=== PATIENT | female | born 2000 | race Caucasian/White ===

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

== ENCOUNTER 2022-03-09 21:18 | Emergency (ER) | payer OTHER ==
[~2022-03-09] VITALS: Ht 175.3 cm; Wt 97.5 kg
[2022-03-09] MEDS ORDERED: Flonase 0.05% N16 GM (22:05)
== END 2022-03-09 23:22 | disposition home or self-care (01) ==
LOC: ER 21:18
DX: H92.02 Otalgia, left ear (principal); J30.2 Other seasonal allergic rhinitis
CPT/HCPCS: 99282

== ENCOUNTER 2023-05-21 22:20 | Emergency (ER) | payer OTHER ==
[~2023-05-21] VITALS: Ht 175.3 cm; Wt 104.3 kg
[~2023-05-21 22:20] MED LIST changes: +Flonase 0.05% N16 GM
[2023-05-21 22:29] VITALS: BP 143/85
[2023-05-21 23:04] LABS: Source, Urine Clean Catch
[2023-05-21 23:07] LABS: Bilirubin, Urine Neg (Neg); Blood, Urine 1+ (Neg); Glucose Qualitative, Urine Neg (Neg); Ketones, Urine Neg (Neg); Leukocyte Esterase, Urine 3+ (Neg); Nitrite, Urine Neg (Neg); Protein, Urine Neg (Neg); Specific Gravity, Urine 1.025 (1.003-1.022); Urobilinogen, Urine NORM (Normal)
[2023-05-21 23:08] LABS: BASOPHILS ABSOLUTE AUTO 0.03 K/mm3 (0.00-0.23); BASOPHILS PERCENT AUTO 0 % (0-2); EOSINOPHILS ABSOLUTE AUTO 0.04 K/mm3 (0.00-0.68); EOSINOPHILS PERCENT AUTO 0 % (0-6); Hematocrit 35.4 % (33.0-51.0); Hemoglobin 11.7 g/dL (11.5-16.0); IMMATURE GRAN ABSOLUTE AUTO 0.04 K/mm3 (0.00-0.10); IMMATURE GRAN PERCENT AUTO 0 % (0-1); LYMPHOCYTES ABSOLUTE AUTO 3.66 K/mm3 (0.84-5.20); LYMPHOCYTES PERCENT AUTO 29 % (21-46); MONOCYTES ABSOLUTE AUTO 0.75 K/mm3 (0.16-1.47); MONOCYTES PERCENT AUTO 6 % (4-13); Mean Corpuscular HGB 27.1 pg (26.0-34.0); Mean Corpuscular HGB Conc 33.1 g/dL (31.5-36.5); Mean Corpuscular Volume 82 fL (80-100); Mean Platelet Volume 8.8 fL (9.1-12.4); NEUTROPHILS ABSOLUTE AUTO 8.23 K/mm3 (1.96-9.15); NEUTROPHILS PERCENT AUTO 65 % (41-73); Platelet Count 395 K/mm3 (150-400); RDW Coefficient Variation 13.1 % (11.7-14.2); RDW Standard Deviation 38.9 fL (35.1-46.3); Red Blood Cell Count 4.32 M/mm3 (3.80-5.20); White Blood Cell Count 12.75 K/mm3 (4.00-11.30)
[2023-05-21 23:09] LABS: Appearance, Urine Hazy (Clear); Color, Urine Yellow (P-Yellow)
[2023-05-21 23:17] LABS: Bacteria Many /hpf; Red Blood Cells, Urine 0-2 /hpf (0-2); Squamous Epithelial Cells Few /hpf (Few); White Blood Cells, Urine 50-100 /hpf (0-5)
[2023-05-21 23:18] LABS: Amorphous Mod (0-Heavy)
[2023-05-21 23:41] LABS: Albumin/Globulin Ratio 0.7 (0.8-1.8); Bilirubin, Total 0.1 mg/dL (0.1-1.0); Bun/Creatinine Ratio 16.5 (12.0-20.0); Calcium, Blood 9.2 mg/dL (8.5-10.1); Creatinine, Blood 0.48 mg/dL (0.40-1.00); Globulin, Blood 4.1 g/dL (2.2-4.0); Potassium, Blood 3.7 mmol/L (3.5-5.5); Total Protein, Blood 7.1 g/dL (6.4-8.2)
== END 2023-05-22 00:43 | disposition home or self-care (01) ==
LOC: ER 22:20
PROVIDERS: Physician Assistant
DX: O20.9 Hemorrhage in early pregnancy, unspecified (principal); Z3A.18 18 weeks gestation of pregnancy
CPT/HCPCS: 76815; 80053; 81001; 84702; 85025; 87086; 99284-25

== ENCOUNTER 2023-10-20 07:05 | Inpatient (IN) | payer OTHER ==
[2023-10-20 07:23] VITALS: BP 136/77
--- NOTE | 2023-10-20 08:11 | NUR ---
STARTED THE ADMIT PROCESS AND PT HAS CHANGED HER MIND AND WANTS TO GO HOME AND TRY GOING INTO LABOR ON HER OWN, KAROL ROTH AND PT AND SO DISCUSSED RISKS OF WAITING AND RESCHEDULING AN INDUCTION AND WHEN WOULD BE AN APPROPERIATE TIME, PT STILL CHOOSING TO GO HOME, SHE REALLY WANTS TO TRY TO GO INTO LABOR ON HER OWN,. KAROL ROTH ANSWERED ALL PT QUESTIONS
--- NOTE | 2023-10-20 08:34 | NUR ---
pt ambulate out, has copy of dcinstructions, dc instructions gone over with pt and SO with leon merino at bedside, pt and so verblize understanding for returning. leon merino has a tenative plan for an induction if pt doesnt go into labor within the week. pt verblized this. pt aware will need to see leon merino on tuesday in the office, office isnt open today to schedule appt, pt verblized calling tuesday to schedule the appt
== END 2023-10-20 08:30 | disposition home or self-care (01) | DRG 833 ==
LOC: BC 07:05 → OBS 07:05 → BC 07:30
PROVIDERS: ADMIT Advanced Practice Midwife
DX: O48.0 Post-term pregnancy (principal); Z3A.40 40 weeks gestation of pregnancy; Z53.29 Procedure and treatment not carried out because of patient's decision for other reasons

== ENCOUNTER 2023-10-23 02:38 | Inpatient (IN) | payer OTHER ==
[2023-10-23] VITALS (13 sets, daily range): BP systolic 127–149; BP diastolic 62–90
[~2023-10-23] VITALS: Ht 172.7 cm; Wt 140.4 kg
[2023-10-23 03:27] LABS: BASOPHILS ABSOLUTE AUTO 0.03 K/mm3 (0.00-0.23); BASOPHILS PERCENT AUTO 0 % (0-2); EOSINOPHILS ABSOLUTE AUTO 0.01 K/mm3 (0.00-0.68); EOSINOPHILS PERCENT AUTO 0 % (0-6); Hematocrit 35.2 % (33.0-51.0); Hemoglobin 11.6 g/dL (11.5-16.0); IMMATURE GRAN ABSOLUTE AUTO 0.06 K/mm3 (0.00-0.10); IMMATURE GRAN PERCENT AUTO 0 % (0-1); LYMPHOCYTES ABSOLUTE AUTO 2.83 K/mm3 (0.84-5.20); LYMPHOCYTES PERCENT AUTO 20 % (21-46); MONOCYTES ABSOLUTE AUTO 0.83 K/mm3 (0.16-1.47); MONOCYTES PERCENT AUTO 6 % (4-13); Mean Corpuscular HGB 26.2 pg (26.0-34.0); Mean Corpuscular Volume 80 fL (80-100); Mean Platelet Volume 9.6 fL (9.1-12.4); NEUTROPHILS ABSOLUTE AUTO 10.75 K/mm3 (1.96-9.15); NEUTROPHILS PERCENT AUTO 74 % (41-73); Platelet Count 374 K/mm3 (150-400); RDW Coefficient Variation 13.3 % (11.7-14.2); RDW Standard Deviation 37.6 fL (35.1-46.3); Red Blood Cell Count 4.42 M/mm3 (3.80-5.20); White Blood Cell Count 14.51 K/mm3 (4.00-11.30)
[2023-10-23] MEDS ORDERED: PRENATAL TABLE1 EAC2 PO (04:09)
[2023-10-23] MEDS ORDERED: ALBU90OI INH (04:10)
[2023-10-24 05:52] VITALS: BP 148/72
[2023-10-24 06:30] LABS: Hematocrit 33.5 % (33.0-51.0); Hemoglobin 10.8 g/dL (11.5-16.0); Mean Corpuscular HGB 26.2 pg (26.0-34.0); Mean Corpuscular HGB Conc 32.2 g/dL (31.5-36.5); Mean Corpuscular Volume 81 fL (80-100); Mean Platelet Volume 9.4 fL (9.1-12.4); Platelet Count 357 K/mm3 (150-400); RDW Coefficient Variation 13.7 % (11.7-14.2); RDW Standard Deviation 39.1 fL (35.1-46.3); Red Blood Cell Count 4.12 M/mm3 (3.80-5.20); White Blood Cell Count 15.78 K/mm3 (4.00-11.30)
[2023-10-24 07:27] VITALS: BP 127/65
== END 2023-10-24 10:45 | disposition home or self-care (01) | DRG 807 ==
LOC: OBS 02:38 → BC 02:38 → OBS 03:03 → BC 03:05
PROVIDERS: ADMIT Advanced Practice Midwife
PROC: 10E0XZZ Delivery of Products of Conception, External Approach (ICD-10-PCS; principal; 2023-10-23)
PROC: 0HQ9XZZ Repair Perineum Skin, External Approach (ICD-10-PCS; 2023-10-23)
PROC: 10907ZC Drainage of Amniotic Fluid, Therapeutic from Products of Conception, Via Natural or Artificial Opening (ICD-10-PCS; 2023-10-23)
DX: O48.0 Post-term pregnancy (principal); Z37.0 Single live birth; Z3A.40 40 weeks gestation of pregnancy; O70.0 First degree perineal laceration during delivery
CPT/HCPCS: 36415; 59025; 85025; 85027; 86850; 86900; 86901; A9270; J2405; J3010

== ENCOUNTER 2024-08-01 09:58 | Emergency (ER) | payer OTHER ==
[~2024-08-01] VITALS: Ht 175.3 cm; Wt 136.1 kg
[~2024-08-01 09:58] MED LIST changes: +ALBU90OI INH; +ONDANSETRON ODT16 MG PO; +PRENATAL TABLE1 EAC2 PO
[2024-08-01 10:35] VITALS: BP 1138/62
[2024-08-01] MEDS ORDERED: Amoxicillin875 MG PO (10:40)
== END 2024-08-01 10:38 | disposition home or self-care (01) ==
LOC: ER 09:58
DX: O99.891 Other specified diseases and conditions complicating pregnancy (principal); H66.92 Otitis media, unspecified, left ear; Z79.899 Other long term (current) drug therapy; Z3A.15 15 weeks gestation of pregnancy
CPT/HCPCS: 99282

== ENCOUNTER → 2024-10-24 | Outpatient (CLI) | payer OTHER ==
[~2024-10-24] MED LIST changes: +Amoxicillin875 MG PO
[2024-10-24 14:33] LABS: BASOPHILS ABSOLUTE AUTO 0.03 K/mm3 (0.00-0.23); BASOPHILS PERCENT AUTO 0 % (0-2); EOSINOPHILS ABSOLUTE AUTO 0.04 K/mm3 (0.00-0.68); EOSINOPHILS PERCENT AUTO 0 % (0-6); Hematocrit 31.5 % (33.0-51.0); Hemoglobin 10.2 g/dL (11.5-16.0); IMMATURE GRAN ABSOLUTE AUTO 0.03 K/mm3 (0.00-0.10); IMMATURE GRAN PERCENT AUTO 0 % (0-1); LYMPHOCYTES ABSOLUTE AUTO 2.55 K/mm3 (0.84-5.20); LYMPHOCYTES PERCENT AUTO 25 % (21-46); MONOCYTES ABSOLUTE AUTO 0.64 K/mm3 (0.16-1.47); MONOCYTES PERCENT AUTO 6 % (4-13); Mean Corpuscular HGB 26.7 pg (26.0-34.0); Mean Corpuscular HGB Conc 32.4 g/dL (31.5-36.5); Mean Corpuscular Volume 83 fL (80-100); Mean Platelet Volume 9.6 fL (9.1-12.4); NEUTROPHILS ABSOLUTE AUTO 6.89 K/mm3 (1.96-9.15); NEUTROPHILS PERCENT AUTO 68 % (41-73); Platelet Count 376 K/mm3 (150-400); RDW Coefficient Variation 13.8 % (11.7-14.2); RDW Standard Deviation 41.4 fL (35.1-46.3); Red Blood Cell Count 3.82 M/mm3 (3.80-5.20); White Blood Cell Count 10.18 K/mm3 (4.00-11.30)
== END ==
LOC: LAB SHORT 13:22
PROVIDERS: Advanced Practice Midwife
DX: Z34.92 Encounter for supervision of normal pregnancy, unspecified, second trimester (principal)
CPT/HCPCS: 82950; 85025

== ENCOUNTER 2025-01-22 06:16 | Inpatient (IN) | payer OTHER ==
[~2025-01-22] VITALS: Ht 175.3 cm; Wt 127.0 kg
[2025-01-22] VITALS (11 sets, daily range): BP systolic 116–138; BP diastolic 55–83
[2025-01-22] MEDS ORDERED: Misoprostol 200 MCG Tab BC PRN (07:00)
[2025-01-22] MEDS ORDERED: Lactated Ringer's 1,000 ML IV PRN (07:00)
[2025-01-22] MEDS ORDERED: Misoprostol 200 MCG Tab PR PRN (07:00)
[2025-01-22] MEDS ORDERED: Oxytocin 10 Unit / ML Vial IM PRN (07:00)
[2025-01-22] MEDS ORDERED: Calcium Carbonate 500 MG Tab Chew PO PRN (07:00)
[2025-01-22] MEDS ORDERED: Methylergonovine Maleate 0.2MG / ML 1ML Amp IM PRN ×2 (07:00→11:30)
[2025-01-22] MEDS ORDERED: Carboprost Tromethamine 250 MCG/ML 1ML Amp IM PRN (07:00)
[2025-01-22] MEDS ORDERED: Ondansetron HCl 2 MG / ML 2ML Vial IV PRN (07:00)
[2025-01-22] MEDS ORDERED: Acetaminophen 500 MG Tab PO PRN (07:00)
[2025-01-22] MEDS ORDERED: Tranexamic Acid 100 ML IV SCH (07:00)
[2025-01-22] MEDS ORDERED: OXYTOCIN/RINGER'S LACTATE 500 ML IV PRN (07:00)
[2025-01-22 08:07] LABS: BASOPHILS ABSOLUTE AUTO 0.03 K/mm3 (0.00-0.23); BASOPHILS PERCENT AUTO 0 % (0-2); EOSINOPHILS ABSOLUTE AUTO 0.03 K/mm3 (0.00-0.68); EOSINOPHILS PERCENT AUTO 0 % (0-6); Hematocrit 33.7 % (33.0-51.0); Hemoglobin 10.7 g/dL (11.5-16.0); IMMATURE GRAN ABSOLUTE AUTO 0.05 K/mm3 (0.00-0.10); IMMATURE GRAN PERCENT AUTO 0 % (0-1); LYMPHOCYTES ABSOLUTE AUTO 2.25 K/mm3 (0.84-5.20); LYMPHOCYTES PERCENT AUTO 19 % (21-46); MONOCYTES ABSOLUTE AUTO 0.67 K/mm3 (0.16-1.47); MONOCYTES PERCENT AUTO 6 % (4-13); Mean Corpuscular HGB 25.5 pg (26.0-34.0); Mean Corpuscular HGB Conc 31.8 g/dL (31.5-36.5); Mean Corpuscular Volume 80 fL (80-100); Mean Platelet Volume 9.3 fL (9.1-12.4); NEUTROPHILS ABSOLUTE AUTO 8.69 K/mm3 (1.96-9.15); NEUTROPHILS PERCENT AUTO 74 % (41-73); Platelet Count 327 K/mm3 (150-400); RDW Coefficient Variation 14.2 % (11.7-14.2); Red Blood Cell Count 4.19 M/mm3 (3.80-5.20); White Blood Cell Count 11.72 K/mm3 (4.00-11.30)
[2025-01-22] MEDS ORDERED: FentaNYL Citrate 50 MCG/ML 2 ML Injection ONE (10:34)
[2025-01-22] MEDS ORDERED: OxyCODONE 5 mg/Acetamin 325 mg TABLET PO PRN (11:20)
[2025-01-22] MEDS ORDERED: Lanolin Cream TOP PRN (11:20)
[2025-01-22] MEDS ORDERED: Acetaminophen 325 MG TABLET PO PRN (11:20)
[2025-01-22] MEDS ORDERED: Benzocaine Topical Anesthetic Spray 60GM TOP PRN (11:20)
[2025-01-22] MEDS ORDERED: Witch Hazel/Glycerin PADS TOP PRN (11:25)
[2025-01-22] MEDS ORDERED: Ketorolac Tromethamine 30mg Vial IV PRN (11:25)
[2025-01-22] MEDS ORDERED: Diphth,Pertuss(Acell),Tet Vac 0.5 ML VIAL IM ONE (11:25)
[2025-01-22] MEDS ORDERED: Ibuprofen 400 MG Tab PO PRN (11:25)
[2025-01-22] MEDS ORDERED: Lactated Ringer's 1,000 ML IV SCH (11:25)
[2025-01-22] MEDS ORDERED: Docusate Sodium 100 MG Cap PO PRN (11:25)
[2025-01-22] MEDS ORDERED: OXYTOCIN/RINGER'S LACTATE 500 ML IV SCH (11:25)
[2025-01-22] MEDS ORDERED: Misoprostol 100 MCG Tab PO PRN (11:30)
[2025-01-23 00:09] VITALS: BP 128/60
[2025-01-23 03:44] VITALS: BP 128/61
[2025-01-23 06:06] LABS: Hematocrit 31.8 % (33.0-51.0); Hemoglobin 10.2 g/dL (11.5-16.0); Mean Corpuscular HGB 25.5 pg (26.0-34.0); Mean Corpuscular HGB Conc 32.1 g/dL (31.5-36.5); Mean Corpuscular Volume 80 fL (80-100); Mean Platelet Volume 9.5 fL (9.1-12.4); Platelet Count 296 K/mm3 (150-400); RDW Coefficient Variation 14.5 % (11.7-14.2); RDW Standard Deviation 42.1 fL (35.1-46.3); White Blood Cell Count 11.89 K/mm3 (4.00-11.30)
[2025-01-23 07:23] VITALS: BP 129/66
--- NOTE | 2025-01-23 07:43 | NUR ---
IRA GALLEGO AWARE OF PT EPDS SCORE. RN CLARIFIED WITH PATIENT THAT SHE ANSWERED BASED OFF OF HOW SHE HAS FELT IN THE LAST 7 DAYS. PT CURRENTLY SEES A PSYCHIATRIST FOR MENTAL HEALTH INCLUDING MAJOR DEPRESSIVE DISORDER. RECENTLY STARTED A NEW MEDICATION ON 01/09/25. PHONE CALL TO [facility] MADE TO SEE PT PRIOR TO DISCHARGE. PT REPORTS THAT SHE DOES NOT CURRENTLY WANT TO HARM HERSELF DESPITE ANSWERING 3 ON QUESTION 10 ON EPDS SCALE.
--- NOTE | 2025-01-23 08:31 | NUR ---
PHONE CALL TO BETHANY IN [employer] AT [phone]. SHE ORIGINALLY PLANNED TO COME SEE PT FIRST THING THIS AM, BUT DUE TO A SICK CALL SHE IS UNAVAILABLE. JOSH FROM [facility] IS PLANNING TO SEE THE PATIENT AT 1100.
[2025-01-23] MEDS ORDERED: Prenatal Vit/FE Fumarate/FA 1 Tab PO SCH (09:00)
[2025-01-23] MEDS ORDERED: ACET500 PO (09:20)
[2025-01-23] MEDS ORDERED: Seroquel Xr50 MG PO (09:20)
[2025-01-23] MEDS ORDERED: IBUP800 PO (09:20)
[2025-01-23] MEDS ORDERED: PRENATAL TABLE1 EAC2 PO (09:21)
--- NOTE | 2025-01-23 11:42 | NUR ---
PT WAS SEEN BY SILVESTRE FROM [facility] AROUND 1000. PER SILVESTRE PT IS CLEARED TO GO HOME.
[2025-01-23] MEDS ORDERED: FentaNYL Citrate 50 MCG/ML 2 ML Injection IV ONE (13:55)
[2025-01-24 18:30] LABS: HEPATITIS C AB CIA INTERP Negative (Negative); HEPATITIS C ANTIBODY CIA INDEX 0.05 IV
== END 2025-01-23 12:08 | disposition home or self-care (01) | DRG 807 ==
LOC: OBS 06:16 → BC 06:17 → OBS 07:05 → BC 07:08
PROVIDERS: ADMIT Advanced Practice Midwife
PROC: 10E0XZZ Delivery of Products of Conception, External Approach (ICD-10-PCS; principal; 2025-01-22)
DX: O48.0 Post-term pregnancy (principal); Z37.0 Single live birth; Z3A.40 40 weeks gestation of pregnancy; O99.344 Other mental disorders complicating childbirth; F41.9 Anxiety disorder, unspecified; F32.A Depression, unspecified
CPT/HCPCS: 36415; 59025; 85025; 85027; 86850; 86900; 86901; 99214; A9270; J1885; J2405